=== PATIENT | male | born 1955 | race Caucasian/White ===

== ENCOUNTER 2016-12-23 23:45 | Observation (INO) | payer BC ==
--- NOTE | 2016-12-24 00:18 | EDM.PDOC ---
ED HPI GENERAL MEDICAL PROBLEM - General Chief Complaint: General Stated Complaint: fall Time Seen by Provider: 12/24/16 00:10 Source of Information: Reports: Patient, Family History Limitations: Reports: Intoxication - History of Present Illness INITIAL COMMENTS - FREE TEXT/NARRATIVE: Patient brought to ER by daughter after sustaining fall injury to side of head. Hit concrete. Was out at bar with friend and friend was buying patient multiple shots of alcohol. Patient is social drinker but is not known to have any problems with ETOH dependency. No LOC with fall. - Related Data Allergies Allergy/AdvReac Type Severity Reaction Status Date / Time Unable to Assess Allergy Unverified 12/23/16 23:55 Home Meds: Home Meds Aspirin [Children's Aspirin] 81 mg PO DAILY 12/23/16 [History] Chlorthalidone 50 mg PO DAILY 12/23/16 [History] Metoprolol Succinate [Toprol XL] 50 mg PO DAILY 12/23/16 [History] Rosuvastatin Calcium 20 mg PO DAILY 12/23/16 [History] metFORMIN [Glucophage] 500 mg PO BIDMEALS 12/23/16 [History] Past Medical History Cardiovascular History: Reports: Hypertension Endocrine/Metabolic History: Reports: Diabetes, Type II Social & Family History - Tobacco Use Smoking Status *Q: Never Smoker - Alcohol Use Alcohol Use History: Yes Alcohol Use in Last Twelve Months: Yes Alcohol Use Comment: uncertain as to how much patient drinks weekly. Unreliable for history at this time. - Recreational Drug Use Recreational Drug Use: No Drug Use in Last 12 Months: No ED ROS GENERAL - Review of Systems Review Of Systems: See Below Constitutional: Reports: No Symptoms HEENT: Reports: No Symptoms. Denies: Dental Pain, Eye Pain, Nose Pain, Sinus Problem, Vertigo, Vision Change Respiratory: Reports: No Symptoms Cardiovascular: Reports: No Symptoms Endocrine: Reports: No Symptoms GI/Abdominal: Reports: No Symptoms : Reports: No Symptoms Musculoskeletal: Reports: No Symptoms. Denies: Neck Pain, Shoulder Pain, Arm Pain, Back Pain, Hand Pain, Leg Pain, Foot Pain, Joint Pain, Joint Swelling Skin: Reports: No Symptoms (he denies having any injuries, despite abrasions to face/hand) Neurological: Reports: No Symptoms. Denies: Headache, Syncope, Trouble Speaking Psychiatric: Reports: No Symptoms Hematologic/Lymphatic: Reports: No Symptoms ED EXAM, GENERAL - Physical Exam Exam: See Below Exam Limited By: Intoxication General Appearance: Other (awake, smells of ETOH, cooperative, no acute distress. ) Eye Exam: Bilateral Eye: EOMI, PERRL Ears: Normal External Exam, Normal Canal, Hearing Grossly Normal, Normal TMs Nose: Normal Inspection, Normal Mucosa, No Blood Throat/Mouth: Normal Inspection, Normal Lips, Normal Teeth, Normal Gums, Normal Oropharynx, Normal Voice, No Airway Compromise Head: Facial Swelling (left cheek). No: Facial Tenderness, Sinus Tenderness Neck: Normal Inspection, Supple, Non-Tender, Full Range of Motion Respiratory/Chest: No Respiratory Distress, Lungs Clear, Normal Breath Sounds, No Accessory Muscle Use, Chest Non-Tender Cardiovascular: Normal Peripheral Pulses, Regular Rate, Rhythm, No Edema, No Murmur Peripheral Pulses: 2+: Radial (L), Radial (R), Dorsalis Pedis (L), Dorsalis Pedis (R) GI/Abdominal: Normal Bowel Sounds, Soft, Non-Tender, No Distention (Male) Exam: Deferred Rectal (Males) Exam: Deferred Back Exam: No: CVA Tenderness (L), CVA Tenderness (R), Decreased Range of Motion , Muscle Spasm, Paraspinal Tenderness, Vertebral Tenderness Extremities: Normal Inspection, Normal Range of Motion, Non-Tender, Normal Capillary Refill Neurological: Oriented, No Motor/Sensory Deficits, Other (intoxicated) Psychiatric: Normal Affect, Normal Mood Skin Exam: Warm, Dry, Other (abrasion left forehead, left cheek, left hand, left shoulder, laceration left cheek) ED GENERAL MEDICAL PROCEDURES - Laceration/Wound Repair Left Cheek Lac/wound length in cm: 2 Appearance: Irregular, Clean Anesthetic Type: Local Local Anesthesia - Lidocaine (Xylocaine): 1% Plain Local Anesthetic Volume: 3cc Skin Prep: Chlorhexidine (Hibiciens), Providone-Iodine (Betadine) Exploration/Debridement/Repair: Wound Explored, In a Bloodless Field, Explored to Base, Multiple Flaps Aligned Closed with: Sutures Suture Size: other (5-0) # of Sutures: 4 Suture Type: Prolene, Interrupted Sterile Dressing Applied: Nurse Tetanus Status Addressed: Yes Complications: No Course - Vital Signs Last Recorded V/S: Last Vital Signs Temp 36.4 C 12/23/16 23:50 Pulse 79 12/23/16 23:50 Resp 16 12/23/16 23:50 BP 100/59 L 12/23/16 23:50 Pulse Ox 99 12/23/16 23:50 - Orders/Labs/Meds Orders: Active Orders 24 hr Category Date Time Status Cervical Spine wo Cont [CT] Stat Exams 12/24/16 00:18 Taken Hand 2V Lt [CR] Stat Exams 12/24/16 00:48 Taken Head wo Cont [CT] Stat Exams 12/23/16 23:51 Taken Max Facial Sinus wo Cont [CT] Stat Exams 12/24/16 00:18 Taken Labs: Laboratory Tests 12/23/16 12/23/16 Range/Units 00:00 12:00 WBC 6.6 (4.0-10.2) K/uL RBC 4.45 (4.33-5.41) M/uL Hgb 13.2 (13.1-16.8) g/dL Hct 39.5 (39.0-49.0) % MCV 88.8 (84.0-98.0) fL MCH 29.7 (28.2-33.3) pg MCHC 33.4 (31.7-36.0) g/dL RDW 13.4 (11.2-14.1) % Plt Count 194 (150-350) K/uL Neut % (Auto) 47.1 (45.0-80.0) % Lymph % (Auto) 37.6 (10.0-50.0) % [place] % (Auto) 12.1 (2.0-14.0) % Eos % (Auto) 2.9 (0.0-5.0) % Baso % (Auto) 0.3 (0.0-2.0) % Neut # (Auto) 3.13 (1.40-7.00) K/uL Lymph # (Auto) 2.49 (0.50-3.50) K/uL [place] # (Auto) 0.80 (0.00-1.00) K/uL Eos # (Auto) 0.19 (0.00-0.50) K/uL Baso # (Auto) 0.02 (0.00-0.20) K/uL Sodium 141 (136-145) mmol/L Potassium 3.2 L (3.5-5.1) mmol/L Chloride 103 (98-107) mmol/L Carbon Dioxide 26.9 (21.0-32.0) mmol/L BUN 14 (7-18) mg/dL Creatinine 0.91 (0.51-1.17) mg/dL Est Cr Clr Drug Dosing 85.79 mL/min Estimated GFR (MDRD) > 60 mL/min Glucose 159 H (74-106) mg/dL Calcium 8.7 (8.5-10.1) mg/dL Ethyl Alcohol 0.297 H (0.000-0.080) g/dL Meds: Medications Discontinued Medications Generic Name Dose Route Start Last Admin Trade Name Freq PRN Reason Stop Dose Admin Sodium Chloride 1,000 mls @ 999 mls/hr 12/24/16 00:19 12/24/16 00:43 Normal Saline IV 12/24/16 01:19 999 mls/hr .BOLUS ONE Administration Lidocaine HCl 5 ml 12/24/16 00:50 12/24/16 01:16 Xylocaine-Mpf 1% INJECT 12/24/16 00:51 5 ml ONETIME ONE Administration Neomycin/Polymyxin/Bacitracin 2 each 12/24/16 01:32 Triple Antibiotic Oint TOP 12/24/16 01:33 ONETIME ONE Ondansetron HCl 4 mg 12/24/16 00:19 12/24/16 00:46 Zofran IVPUSH 12/24/16 00:20 4 mg ONETIME ONE Administration Potassium Chloride 40 meq 12/24/16 00:48 12/24/16 00:58 Klor-Con M20 PO 12/24/16 00:49 40 meq ONETIME ONE Administration - Radiology Interpretation Free Text/Narrative:: Left hand film did not show fracture. CT Results Date: 12/24/16 CT Results Time: 01:30 (No acute fractures noted CSpine/facial bones. Head CT overall unremarkable for acute injury) - Re-Assessments/Exams Free Text/Narrative Re-Assessment/Exam: 12/24/16 01:56 Patient noted to have hypokalemia. Given IV fluids, Zofran, and oral K. Admitted observation for additional IV fluids and potassium support. Anticipate discharge within 8-12 hours. Blood alcohol significantly elevated at 0.297 Laceration of cheek repaired. Departure - Departure Time of Disposition: 01:58 Disposition: Refer to Observation Condition: Good Clinical Impression: Contusion of multiple sites, Abrasion, multiple sites Alcohol intoxication Qualifiers: Complication of substance-induced condition: uncomplicated Qualified Code(s): F10.920 - Alcohol use, unspecified with intoxication, uncomplicated Fall Qualifiers: Encounter type: initial encounter Qualified Code(s): W19.XXXA - Unspecified fall, initial encounter Laceration of cheek, left Qualifiers: Encounter type: initial encounter Qualified Code(s): S01.412A - Laceration without foreign body of left cheek and temporomandibular area, initial encounter Traumatic hematoma of cheek Qualifiers: Encounter type: initial encounter Qualified Code(s): S00.83XA - Contusion of other part of head, initial encounter - Discharge Information - Problem List & Annotations (1) Abrasion, multiple sites SNOMED Code(s): 063682360 Code(s): T07.XXXA - UNSPECIFIED MULTIPLE INJURIES, INITIAL ENCOUNTER Status : Acute Priority: High Current Visit: Yes Onset Date: 12/23/16 Annotation/Comment:: Fall secondary to ETOH intoxication, resulting in abrasions , contusion of multiple sites as well as cheek laceration. (2) Alcohol intoxication SNOMED Code(s): 18880609 Code(s): F10.929 - ALCOHOL USE, UNSPECIFIED WITH INTOXICATION, UNSPECIFIED Status: Acute Priority: High Current Visit: Yes Onset Date: 12/23/16 Qualifiers: Complication of substance-induced condition: uncomplicated Qualified Code(s ): F10.920 - Alcohol use, unspecified with intoxication, uncomplicated (3) Contusion of multiple sites SNOMED Code(s): 705094694 Code(s): T07.XXXA - UNSPECIFIED MULTIPLE INJURIES, INITIAL ENCOUNTER Status : Acute Priority: High Current Visit: Yes Onset Date: 12/23/16 (4) Fall SNOMED Code(s): 8622472 Code(s): W19.XXXA - UNSPECIFIED FALL, INITIAL ENCOUNTER Status: Acute Priority: High Current Visit: Yes Onset Date: 12/23/16 Qualifiers: Encounter type: initial encounter Qualified Code(s): W19.XXXA - Unspecified fall, initial encounter (5) Laceration of cheek, left SNOMED Code(s): 758114416 Code(s): S01.412A - LACERATION W/O FOREIGN BODY OF LEFT CHEEK AND TMJ AREA, INIT Status: Acute Priority: High Current Visit: Yes Onset Date: Qualifiers: Encounter type: initial encounter Qualified Code(s): S01.412A - Laceration without foreign body of left cheek and temporomandibular area, initial encounter (6) Traumatic hematoma of cheek SNOMED Code(s): 9630465 Code(s): S00.83XA - CONTUSION OF OTHER PART OF HEAD, INITIAL ENCOUNTER Status: Acute Priority: High Current Visit: Yes Onset Date: 12/23/16 Qualifiers: Encounter type: initial encounter Qualified Code(s): S00.83XA - Contusion of other part of head, initial encounter (7) Hypertension SNOMED Code(s): 34224713 Code(s): I10 - ESSENTIAL (PRIMARY) HYPERTENSION Status: Chronic Priority : Low Current Visit: No Qualifiers: Hypertension type: unspecified Qualified Code(s): I10 - Essential (primary ) hypertension (8) Diabetes SNOMED Code(s): 72957473 Code(s): E11.9 - TYPE 2 DIABETES MELLITUS WITHOUT COMPLICATIONS Status: Chronic Priority: Low Current Visit: No Qualifiers: Diabetes mellitus type: type 2 (9) Hypokalemia SNOMED Code(s): 04546840 Code(s): E87.6 - HYPOKALEMIA Status: Chronic Priority: Medium Current Visit: Yes Annotation/Comment:: Oral supplementation initiated. Recheck in 6 hours. - My Orders Last 24 Hours: My Active Orders 12/23/16 23:51 Head wo Cont [CT] Stat 12/24/16 00:18 Cervical Spine wo Cont [CT] Stat Max Facial Sinus wo Cont [CT] Stat 12/24/16 00:48 Hand 2V Lt [CR] Stat - Assessment/Plan Admission H&P: Please use this note as an admission H&P Last 24 Hours: My Active Orders 12/23/16 23:51 Head wo Cont [CT] Stat 12/24/16 00:18 Cervical Spine wo Cont [CT] Stat Max Facial Sinus wo Cont [CT] Stat 12/24/16 00:48 Hand 2V Lt [CR] Stat Assessment:: as above Plan: as above.
[2016-12-24 00:19] LABS: CHLORIDE,CL 103 mmol/L (98-107); SODIUM,NA 141 mmol/L (136-145)
[2016-12-24] MEDS ORDERED: Ondansetron 4 MG/2 ML SDV IVPUSH ONE (00:19)
[2016-12-24] MEDS ORDERED: Sodium Chloride 0.9% 1,000 ML IV ONE (00:19)
[2016-12-24] MEDS ORDERED: Potassium Chloride 20 MEQ Tab.ER PO ONE ×2 (00:48→05:00)
[2016-12-24] MEDS ORDERED: Bacitracin/Neomycin/Polymyxin B Oint 0.9 GM U/D Packet TOP ONE (01:32)
[2016-12-24] MEDS ORDERED: Acetaminophen 325 MG Tab PO PRN (02:05)
[2016-12-24] MEDS ORDERED: Ondansetron 4 MG/2 ML SDV IVPUSH PRN (02:09)
[2016-12-24] MEDS ORDERED: Potassium Chloride 10 MEQ Tab.ER PO ONE ×2 (02:10→08:00)
[2016-12-24] MEDS ORDERED: Sodium Chloride 0.9% 1,000 ML IV SCH ×2 (02:15)
[2016-12-24 09:21] LABS: CHLORIDE,CL 109 mmol/L (98-107); SODIUM,NA 145 mmol/L (136-145)
[2016-12-24 09:57] VITALS: BP 102/66
--- NOTE | 2016-12-24 11:21 | PCM.DCSUM1 ---
Discharge Summary - Discharge Data Discharge Date: 12/24/16 Discharge Disposition: Home, Self-Care 01 Condition: Good - Patient Instructions Diet: Heart Healthy Diet Activity: As Tolerated Driving: May Drive Today Showering/Bathing: May Shower - Discharge Plan Home Medications: Home Meds Chlorthalidone 50 mg PO DAILY 12/23/16 [History] Rosuvastatin Calcium 20 mg PO DAILY 12/23/16 [History] Allopurinol [Zyloprim] 300 mg PO BEDTIME 12/24/16 [History] Aspirin [Adult Low Dose Aspirin EC] 81 mg PO DAILY 12/24/16 [History] Atenolol [Tenormin] 25 mg PO DAILY 12/24/16 [History] Calcium Carbonate [Tums Extra Strength] 750 mg PO BIDMEALS 12/24/16 [History] Cholecalciferol (Vitamin D3) [Vitamin D3] 400 units PO BID 12/24/16 [History] Enalapril Maleate [Vasotec] 2.5 mg PO BEDTIME 12/24/16 [History] Fluticasone Propionate [Flonase] 2 spray NASBOTH DAILY 12/24/16 [History] Loratadine [Claritin] 10 mg PO DAILY 12/24/16 [History] Multivitamin with Minerals [Multiple Vitamin] 1 tab PO DAILY 12/24/16 [History] Naproxen Sodium [Aleve] 220 mg PO BID PRN 12/24/16 [History] Potassium Chloride [Klor-Con M20] 20 meq PO BIDMEALS 12/24/16 [History] Ubidecarenone [Coenzyme Q10] 100 mg PO BID 12/24/16 [History] metFORMIN [Glucophage XR] 500 mg PO DAILY 12/24/16 [History] Forms: ED Department Discharge Referrals: Jennifer Galo, [employer] [Primary Care Provider] - - Discharge Summary/Plan Comment DC Time >30 min.: No - Patient Data Vitals - Most Recent: Last Vital Signs Temp 98.3 F 12/24/16 08:00 Pulse 81 12/24/16 08:00 Resp 16 12/24/16 08:00 BP 102/66 12/24/16 08:00 Pulse Ox 97 12/24/16 08:00 Weight - Most Recent: 190 lb I&O - Last 24 hours: Intake & Output 12/23/16 12/24/1612/24/17 22:59 06:59 14:59 Intake Total 1528 Output Total 900 Balance 628 Lab Results - Last 24 hrs: Laboratory Results - last 24 hr 12/24/16 12/24/16 Range/Units 09:00 09:00 Sodium 145 (136-145) mmol/L Potassium 4.1 (3.5-5.1) mmol/L Chloride 109 H (98-107) mmol/L Carbon Dioxide 25.6 (21.0-32.0) mmol/L BUN 13 (7-18) mg/dL Creatinine 0.78 (0.51-1.17) mg/dL Est Cr Clr Drug Dosing 100.09 mL/min Estimated GFR (MDRD) > 60 mL/min Glucose 223 H (74-106) mg/dL Calcium 8.5 (8.5-10.1) mg/dL Ethyl Alcohol 0.154 H (0.000-0.080) g/dL Med Orders - Current: Current Medications Acetaminophen (Tylenol) 650 mg PO Q4H PRN PRN Reason: analgesia/fever Sodium Chloride (Normal Saline) 1,000 mls @ 150 mls/hr IV ASDIRECTED [facility] Last Admin: 12/24/16 03:26 Dose: 150 mls/hr Sodium Chloride (Normal Saline) 1,000 mls @ 150 mls/hr IV ASDIRECTED [facility] Ondansetron HCl (Zofran) 4 mg IVPUSH Q6H PRN PRN Reason: Nausea/Vomiting Discontinued Medications Sodium Chloride (Normal Saline) 1,000 mls @ 999 mls/hr IV .BOLUS ONE Stop: 12/24/16 01:19 Last Admin: 12/24/16 00:43 Dose: 999 mls/hr Lidocaine HCl (Xylocaine-Mpf 1%) 5 ml INJECT ONETIME ONE Stop: 12/24/16 00:51 Last Admin: 12/24/16 01:16 Dose: 5 ml Neomycin/Polymyxin/Bacitracin (Triple Antibiotic Oint) 2 each TOP ONETIME ONE Stop: 12/24/16 01:33 Last Admin: 12/24/16 02:03 Dose: 2 each Ondansetron HCl (Zofran) 4 mg IVPUSH ONETIME ONE Stop: 12/24/16 00:20 Last Admin: 12/24/16 00:46 Dose: 4 mg Potassium Chloride (Klor-Con M20) 40 meq PO ONETIME ONE Stop: 12/24/16 00:49 Last Admin: 12/24/16 00:58 Dose: 40 meq Potassium Chloride (Klor-Con M20) 40 meq PO ONETIME ONE Stop: 12/24/16 05:01 Last Admin: 12/24/16 04:34 Dose: 40 meq Potassium Chloride (Klor-Con 10) 20 meq PO ONETIME ONE Stop: 12/24/16 02:11 Last Admin: 12/24/16 02:50 Dose: 20 meq Potassium Chloride (Klor-Con 10) 20 meq PO ONETIME ONE Stop: 12/24/16 08:01 Last Admin: 12/24/16 07:56 Dose: 20 meq - Exam General: Reports: Alert, Oriented HEENT: Reports: Pupils Equal, Pupils Reactive, EOMI, Mucous Membr. Moist/[place] Neck: Reports: Supple Lungs: Reports: Clear to Auscultation, Normal Respiratory Effort Cardiovascular: Reports: Regular Rate, Regular Rhythm GI/Abdominal Exam: Normal Bowel Sounds, Soft, Non-Tender, No Organomegaly, No Distention, No Abnormal Bruit, No Mass, Pelvis Stable (Male) Exam: Deferred Rectal (Males) Exam: Normal Exam, Deferred Back Exam: Reports: Normal Inspection, Full Range of Motion Extremities: Normal Inspection, Normal Range of Motion, Non-Tender, No Pedal Edema, Normal Capillary Refill Skin: Reports: Warm, Dry, Intact, Ecchymosis ( with ecchymosis left thigh outer aspect ), Other (Hydration) Wound/Incisions: Reports: Healing Well Neurological: Reports: No New Focal Deficit Psy/Mental Status: Reports: Alert, Normal Affect, Normal Mood Physical Findings Comments:: Final diagnosis alcohol intoxication close head injury ecchymosis left eye I Plan discharge home follow up with primary *Q Meaningful Use (DIS) - VTE *Q VTE Criteria *Q: - Stroke *Q Stroke Criteria *Q: - AMI *Q AMI Criteria *Q:
[2016-12-24] MEDS ORDERED: Non-Formulary Medication 1 Each (Potassium Chloride [Klor-Con M20] 20 MEQ) PO SCH (17:30)
[2016-12-24] MEDS ORDERED: Calcium Carbonate 750 MG Tab.Chew PO SCH (17:30)
[2016-12-24] MEDS ORDERED: Non-Formulary Medication 1 Each (Ubidecarenone [Coenzyme Q10] 100 MG) PO SCH (18:00)
[2016-12-24] MEDS ORDERED: Cholecalciferol (Vitamin D3) 400 Unit Tab PO SCH (18:00)
[2016-12-24] MEDS ORDERED: Non-Formulary Medication 1 Each (Allopurinol [Zyloprim] 300 MG) PO SCH (20:00)
[2016-12-24] MEDS ORDERED: ENALAPRIL MALEATE 2.5 MG PO SCH (20:00)
[2016-12-25] MEDS ORDERED: Non-Formulary Medication 1 Each (Rosuvastatin Calcium [Rosuvastatin Calcium] 20 MG) PO SCH (08:00)
[2016-12-25] MEDS ORDERED: Atenolol 25 MG Tab PO SCH (08:00)
[2016-12-25] MEDS ORDERED: Aspirin 81 MG Tab.EC PO SCH (08:00)
[2016-12-25] MEDS ORDERED: metFORMIN 500 MG Tab.ER PO SCH (08:00)
[2016-12-25] MEDS ORDERED: Fluticasone Propionate Nasal Spray 16 GM Bottle NASBOTH SCH (08:00)
[2016-12-25] MEDS ORDERED: Non-Formulary Medication 1 Each (Loratadine [Claritin] 10 MG) PO SCH (08:00)
[2016-12-25] MEDS ORDERED: Chlorthalidone 25 MG Tab PO SCH (08:00)
[2016-12-25] MEDS ORDERED: Non-Formulary Medication 1 Each (Multivitamin With Minerals [Multiple Vitamin] 1 TAB) PO SCH (08:00)
== END 2016-12-24 12:25 | disposition home or self-care (01) ==
LOC: LL.ED 23:45 → LL.MS 12-24 01:08
PROVIDERS: ADMIT Emergency Medicine; ATTEND Family Medicine
DX: F10.920 Alcohol use, unspecified with intoxication, uncomplicated (principal); S09.90XA Unspecified injury of head, initial encounter; S05.12XA Contusion of eyeball and orbital tissues, left eye, initial encounter; S01.412A Laceration without foreign body of left cheek and temporomandibular area, initial encounter; I10 Essential (primary) hypertension; E11.9 Type 2 diabetes mellitus without complications; E87.6 Hypokalemia; W19.XXXA Unspecified fall, initial encounter; Z79.82 Long term (current) use of aspirin; Z79.84 Long term (current) use of oral hypoglycemic drugs; Z79.51 Long term (current) use of inhaled steroids; Z79.899 Other long term (current) drug therapy
CPT/HCPCS: 36415; 70450; 70486; 72125; 73120; 80048; 85025; 96361; 96374; 99285; A9270; G0378; G0480; J2405; J7030; 12011

== ENCOUNTER 2017-07-17 10:45 | Day surgery (SDC) | payer BC ==
[~2017-07-17 10:45] MED LIST: Lactated Ringers 1,000 ML IV SCH; Sodium Chloride 0.9% 10 ML Syringe FLUSH PRN
[2017-07-17] MEDS ORDERED: fentaNYL 100 MCG/2 ML SDV ONE ×2 (12:20→12:29)
[2017-07-17] MEDS ORDERED: Midazolam 1 MG/ML 2 ML SDV ONE ×2 (12:21→12:29)
[2017-07-17] MEDS ORDERED: Propofol 200 MG/20 ML SDV ONE ×2 (12:21→12:29)
--- NOTE | 2017-07-17 12:25 | PCM.HPR ---
H & P Addendum review - H & P Addendum Review Date of Original H & P: 06/25/17 Date Reviewed: 07/17/17 Time Reviewed: 12:25 Patient was Examined: No Changes
--- NOTE | 2017-07-17 12:48 | PCM.OPNOTE ---
- General Post-Op/Procedure Note Date of Surgery/Procedure: 07/17/17 Operative Procedure(s): Colonoscopy Findings: Normal Pre Op Diagnosis: Screening Post-Op Diagnosis: Same Anesthesia Technique: CHLOE Primary Surgeon: Daryl Latham Anesthesia Provider: Arely Mondragon Complications: None Condition: Good
--- NOTE | 2017-07-17 14:19 | OR ---
Date of Procedure: 07/17/2017 PREOPERATIVE DIAGNOSIS: Colon screening. POSTOPERATIVE DIAGNOSIS: Normal colonoscopy. PROCEDURE: Colonoscopy. ANESTHESIA: IV sedation. DESCRIPTION OF PROCEDURE: The patient was brought to the procedure room, where he was placed on his left side and IV sedation administered. Digital rectal exam was performed which was normal. Colonoscope was inserted and advanced to the level of the cecum without difficulty. Cecal position was confirmed by identifying the appendiceal lumen and the ileocecal valve. Prep was good and surfaces were well visualized. Upon withdrawing the scope, the ascending, transverse, and descending colon were normal in appearance. Sigmoid colon and rectum were normal. Retroflexion was normal. Air was removed and the scope withdrawn. The patient tolerated the procedure well and returned to recovery in stable condition. Recommend a routine colon screening again in 10 years. SPIKE LIRIANO MD /[id number]
[2017-07-17 16:27] VITALS: BP 107/72
== END 2017-07-17 14:20 | disposition home or self-care (01) ==
LOC: LL.SDS 10:45
PROVIDERS: ATTEND Surgery
DX: Z12.11 Encounter for screening for malignant neoplasm of colon (principal); I10 Essential (primary) hypertension; E78.5 Hyperlipidemia, unspecified; R73.03 Prediabetes; M17.0 Bilateral primary osteoarthritis of knee; Z79.84 Long term (current) use of oral hypoglycemic drugs; Z79.899 Other long term (current) drug therapy
CPT/HCPCS: 45378; J2250; J2704; J3010; J7120

== ENCOUNTER 2023-10-02 11:17 | Day surgery (SDC) | payer MEDICARE, BC ==
[~2023-10-02 11:17] MED LIST changes: -Lactated Ringers 1,000 ML IV SCH; +Propofol 200 MG/20 ML SDV ONE; -Sodium Chloride 0.9% 10 ML Syringe FLUSH PRN
[2023-10-02] MEDS ORDERED: Sodium Chloride 0.9% 10 ML Syringe FLUSH PRN (11:30)
[2023-10-02] MEDS: Lactated Ringers 1,000 ML IV SCH (11:57)
[2023-10-02] MEDS ORDERED: Propofol 200 MG/20 ML SDV ONE (13:05)
[2023-10-02 13:28] VITALS: BP 107/65; PULSE 54
== END 2023-10-02 13:47 | disposition home or self-care (01) ==
LOC: LL.SDS 11:17
PROVIDERS: ATTEND Surgery
DX: Z12.11 Encounter for screening for malignant neoplasm of colon (principal); I25.10 Atherosclerotic heart disease of native coronary artery without angina pectoris; E11.69 Type 2 diabetes mellitus with other specified complication; E78.2 Mixed hyperlipidemia; E11.40 Type 2 diabetes mellitus with diabetic neuropathy, unspecified; E11.59 Type 2 diabetes mellitus with other circulatory complications; I10 Essential (primary) hypertension; N40.1 Benign prostatic hyperplasia with lower urinary tract symptoms; G47.30 Sleep apnea, unspecified; B35.4 Tinea corporis; N20.0 Calculus of kidney; M16.11 Unilateral primary osteoarthritis, right hip; M19.011 Primary osteoarthritis, right shoulder; M19.012 Primary osteoarthritis, left shoulder; Z79.84 Long term (current) use of oral hypoglycemic drugs; Z79.899 Other long term (current) drug therapy
CPT/HCPCS: J2704; J7120